=== PATIENT | female | born 1940 | race Caucasian/White ===

== ENCOUNTER 2024-10-07 08:01 | Day surgery (SDC) | payer MEDICARE, OTHER, SELFPAY ==
[2024-09-27 08:16] VITALS: BMI 31.6
--- NOTE | 2024-10-01 13:45 | HO.ANESPROP2 ---
Documented by User: Leilani Dey NP 10/01/24 13:45 HPI - Anesthesia Eval Consult details Narrative: 83yo F for Right Cataract Extraction IOL Insertion No previous cataract on record PMFSH Past Medical History Medical History Prediabetes Osteoarthritis Obese Hyperlipidemia Thyroid disease HTN (hypertension) Surgical History Surgical History Hx of cholecystectomy No pertinent past surgical history Social History Social History Patient Tobacco Use Status: Former Tobacco user Use of substances other than those prescribed or required for medical reasons: No Advance Directives: No Advance Directives Information Provided: Yes Advance Directives on File: No Recently lost weight without trying: No Nutrition Risks: No Nutritional Risk Patient : No : No Meds Allergies Allergy/AdvReac Type Severity Reaction Status Date / Time No Known Allergies Allergy Verified 10/07/24 08:54 Home Medications ?Medication ?Instructions ?Recorded ?Confirmed ?Last Taken ?Type ascorbic acid (vitamin C) 500 mg 500 mg PO DAILY 09/27/24 09/27/24 Unknown History tablet (Vitamin C) atorvastatin 10 mg tablet 10 mg PO DAILY 09/27/24 09/27/24 Unknown History carvedilol 25 mg tablet 25 mg PO BID 09/27/24 09/27/24 Unknown History cholestyramine (with sugar) 4 gram ea PO 09/27/24 Unknown History oral powder furosemide 20 mg tablet 20 mg PO DAILY 09/27/24 09/27/24 Unknown History levothyroxine 88 mcg tablet 88 mcg PO DAILY 09/27/24 09/27/24 Unknown History lisinopril 30 mg tablet 30 mg PO DAILY 09/27/24 09/27/24 Unknown History Exam Height,Weight and Vital Signs: Height 5 ft 3.78 in Weight 83 kg Assessment and Plan Assessment Anesthesia Assessment: Chart Reviewed Documented by User: Sonya Rincon MD 10/07/24 09:04 [facility] Past Medical History Medical History Prediabetes Osteoarthritis Obese Hyperlipidemia Thyroid disease HTN (hypertension) Family History Family history of problems with anesthesia: No Surgical History Surgical History Hx of cholecystectomy No pertinent past surgical history History of Problems with Anesthesia: No Social History Social History Patient Tobacco Use Status: Former Tobacco user Use of substances other than those prescribed or required for medical reasons: No Advance Directives: No Advance Directives Information Provided: Yes Advance Directives on File: No Recently lost weight without trying: No Nutrition Risks: No Nutritional Risk Patient : No : No Meds Allergies Allergy/AdvReac Type Severity Reaction Status Date / Time No Known Allergies Allergy Verified 10/07/24 08:54 Home Medications ?Medication ?Instructions ?Recorded ?Confirmed ?Last Taken ?Type ascorbic acid (vitamin C) 500 mg 500 mg PO DAILY 09/27/24 09/27/24 Unknown History tablet (Vitamin C) atorvastatin 10 mg tablet 10 mg PO DAILY 09/27/24 09/27/24 Unknown History carvedilol 25 mg tablet 25 mg PO BID 09/27/24 09/27/24 Unknown History cholestyramine (with sugar) 4 gram ea PO 09/27/24 Unknown History oral powder furosemide 20 mg tablet 20 mg PO DAILY 09/27/24 09/27/24 Unknown History levothyroxine 88 mcg tablet 88 mcg PO DAILY 09/27/24 09/27/24 Unknown History lisinopril 30 mg tablet 30 mg PO DAILY 09/27/24 09/27/24 Unknown History Exam Airway Mallampati Class: II TM Dist: >3cm Neck ROM: Limited Heart: rrr Lungs: cta Assessment and Plan Assessment Anesthesia Assessment: Anesthesia Plan Discussed Final Anesthetic Review Family History of Problems with Anesthesia: No History of Problems with Anesthesia: No NPO: Yes ASA Class: III Final Preanesthetic Review: No Changes in Pt Med Stat, Meds/Allgs Chart Reviewed, Consent Obtained/Reviewed and Anes Risks/Benef Reviewed Patient Risk: Low Procedure Risk: Low Anesthetic Plan Anesthetic Plan: MAC: Disposition: Standard PACU
--- OUTSIDE RECORDS SUMMARY | 2024-10-07 08:03 | XMS_ITS | Continuity of Care Document ---
Author Organization [facility] Address [address] [place] [address]- Care Team Providers Care Implementation Project Manager Name Role Phone Moe KENNEDY, Matheus Primary Care Physician Encounter [facility] [id number] Date(s): 09/26/24 - 10/03/24 [facility] [address] [place] [address] Attending Physician: Momo Mata MD Referring Physician: Medhat Alejandre MD Encounter Type: Office Visit Allergies, Adverse Reactions, Alerts No Known Allergies Medications atorvastatin 10 mg oral tablet 1 tablet = 10 mg, By Mouth, Daily, 0 Refills, Maintenance, 07/08/20 6:04:00 PM EDT Start Date: 07/08/20 Status: Ordered Repeat number: 1 carvedilol 25 mg oral tablet Refills 0, Maintenance, 09/26/24 9:39:00 AM EST, Partial fill upon patient request if the prescription is for a schedule II opioid drug. Start Date: 09/26/24 Status: Ordered Repeat number: 1 cholestyramine 4 gm/9 gm oral powder for reconstitution TAKE 1 SCOOP EVERY DAY BY ORAL ROUTE NEEDED FOR 28 DAYS. Start Date: 09/26/24 Status: Ordered Repeat number: 1 furosemide 20 mg oral tablet Refills 0, Maintenance, 09/26/24 9:39:00 AM EST, Partial fill upon patient request if the prescription is for a schedule II opioid drug. Start Date: 09/26/24 Status: Ordered Repeat number: 1 Hair Skin and Nails By Mouth, Daily, 0 Refills, Maintenance, 09/26/24 9:45:00 AM EST, Partial fill upon patient requestif the prescription is for a schedule II opioid drug. Start Date: 09/26/24 Status: Ordered Repeat number: 1 levothyroxine 0.088 mg oral tablet 1 tablet = 88 mcg, By Mouth, Daily, 0 Refills, Maintenance, 07/08/20 6:03:00 PM EDT Start Date: 07/08/20 Status: Ordered Repeat number: 1 lisinopril 30 mg oral tablet 1 tablet = 30 mg, By Mouth, Daily, 0 Refills, Maintenance, 07/08/20 6:04:00 PM EDT Start Date: 07/08/20 Status: Ordered Repeat number: 1 Vitamin C By Mouth, Daily, 0 Refills, Maintenance, 09/26/24 9:45:00 AM EST, Partial fill upon patient requestif the prescription is for a schedule II opioid drug. Start Date: 09/26/24 Status: Ordered Repeat number: 1 Problem List Condition Confirmation Course Effective Dates Status H ealth Status Informant HTN - Hypertension Confirmed Active Hyperlipidemia Confirmed Active Hypothyroid Confirmed Active Obese class I Confirmed Active Osteoarthritis of knee Confirmed Active Prediabetes Confirmed Active Vital Signs Most recent to oldest [Reference Range]: 1 Height 162 cm (09/26/24 9:37 AM) Weight 83 kg (09/26/24 9:37 AM) Oxygen Saturation [94-100 %] 100 % (09/26/24 9:37 AM) Pulse Rate [55-90 bpm] 71 bpm (09/26/24 9:37 AM) Body Mass Index [18.5-24.99 kg/m2] 31.63 kg/m2 *>HHI* (09/26/24 9:37 AM) Blood Pressure [90-138/55-84 mm Hg] 113/ 54mm Hg (09/26/24 9:37 AM) Respiratory Rate [16-30 br/min] 16 br/mi n (09/26/24 9:37 AM) Mode of Delivery (Oxygen) Room air (09/26/24 9:37 AM) Blood pressure sites Arm, right (09/26/24 9:37 AM) Weight Obtained Via Standing scale (09/26/24 9:37 AM) Social History Social History Type Response Smoking Status Former smoker entered on: 12/13/14 Sex Sex Representation Female (finding) Patient Care team information Care Team Personnel Name: Joy Paniagua RN Position: [place] PURI RN Member Role: Primary Care Nurse Name: Emily Mcmahon RN Position: EDNA PURI RN Member Role: Primary Care Nurse Name: Matheus Rosa MD Position: Reference Physician Member Role: PCP Address: [address] [place] [address] Telecom: Care Team Related Persons Name: DOROTHY BLANDON Name: GLORIA BLANDON Insurance Providers Guarantor name: MICAH BLANDON Health Plan Information #: 1 Payer: MEDICARE PART B OUTPT Member Number: [id number] Policy Number: NA Group Number: NA Health Plan Information #: 2 Payer: [facility] Member Number: [id number] Policy Number: NA Group Number: [id number]
--- OUTSIDE RECORDS SUMMARY | 2024-10-07 08:03 | XMS_ITS | Continuity of Care Document ---
Author Organization [facility] ter Address [address] [place] [address]- Care Team Providers Care Inspector Outside Steam Distribution Name Role Phone Moe KENNEDY, Matheus Primary Care Physician [place] [facility] [place]/14[place] - 07/14/[address] [address]- [facility] Discharge Disposition: A-D/C Home Attending Physician: Elli Ocampo MD Admitting Physician: Elli Ocampo MD Referring Physician: Elli Ocampo MD Allergies, Adverse Reactions, Alerts Substance Reaction Severity Status NKA Active Medications atorvastatin 10 mg oral tablet 1 tablet = 10 mg, By Mouth, Daily, 0 Refills, Maintenance, 07/08/20 18:04:00 EDT Start Date: 07/08/20 Status: Ordered doxycycline hyclate 100 mg oral capsule 1 capsule = 100 mg, By Mouth, Daily, 0 Refills, Maintenance, 07/08/20 18:04:00 EDT Start Date: 07/08/20 Status: Ordered Hair, Skin & Nails = 5 mg, By Mouth, Daily, 0 Refills, Maintenance, 07/08/20 18:05:00 EDT Start Date: 07/08/20 Status: Ordered levothyroxine 0.088 mg oral tablet 1 tablet = 88 mcg, By Mouth, Daily, 0 Refills, Maintenance, 07/08/20 18:03:00 EDT Start Date: 07/08/20 Status: Ordered lisinopril 30 mg oral tablet 1 tablet = 30 mg, By Mouth, Daily, 0 Refills, Maintenance, 07/08/20 18:04:00 EDT Start Date: 07/08/20 Status: Ordered traMADol 50 mg oral tablet 1 tablet = 50 mg, By Mouth, Every 6 hours, PRN as needed for pain, for 7 days, # 28 tablet, 0 Refills, Acute 07/21/20 8:42:00 EDT, 07/14/20 8:42:00 EDT, Tablet, [facility], 162, cm, 07/14/20 6:56:00 EDT, Height, 84, kg, 07/14/20 6:56:00... Start Date: 07/14/20 Stop Date: 07/21/20 Status: Ordered Valium 2 mg oral tablet 2 mg, 1, tablet, By Mouth, 3 times a day, PRN, for 7 days, # 21 tablet, Refills 0, Tot. Refills 0, Acute 07/21/20 8:42:00 EDT, Spasm, 07/14/20 8:42:00 EDT, Route to Pharmacy Electronically, [facility], 162, cm, 07/14/20 6:56:00 EDT, [place]... Start Date: 07/14/20 Stop Date: 07/21/20 Status: Ordered Vital Signs Most recent to oldest [Reference Range]: 1 2 3 Height 162 cm (07/14/20 6:56 AM) 162 cm (07/08/20 6:19 PM) Weight 84 kg (07/14/20 6:56 AM) 84 kg (07/08/20 6:19 PM) Oxygen Saturation [94-100 %] 94 % (07/14/20 8:15 AM) 94 % (07/14/20 8:00 AM) 98 % (07/14/20 6:56 AM) Pulse Rate [55-90 bpm] 78 bpm (07/14/20 6:56 AM) Body Mass Index [18.5-24.99] 32.01 *>HHI* (07/14/20 6:56 AM) 32.01 *>HHI* (07/08/20 6:19 PM) Blood Pressure [90-138/55-84 mm Hg] 123/52mm Hg (07/14/20 8:15 AM) 113/55mm Hg (07/14/20 8:00 AM) 151/69mm Hg *H* (07/14/20 6:56 AM) Respiratory Rate [16-30 br/min] 16 br/min (07/14/20 8:15 AM) 8 br/min *L* (07/14/20 8:00 AM) 18 br/min (07/14/20 6:56 AM) Temperature [96.8-100.4 DegF] 97.4 DegF (07/14/20 9:00 AM) 97.1 DegF (07/14/20 8:00 AM) 98.9 DegF (07/14/20 6:56 AM) Mode of Delivery (Oxygen) Room air (07/14/20 8:15 AM) Room air (07/14/20 8:00 AM) Room air (07/14/20 6:56 AM) Blood pressure sites Arm, left (07/14/20 8:00 AM) Arm, left (07/14/20 6:56 AM) Temperature Route Temporal (07/14/20 8:00 AM) Temporal (07/14/20 6:56 AM) Dry Weight 84 kg (07/14/20 6:56 AM) 84 kg (07/08/20 6:19 PM) Weight Obtained Via Standing scale (07/14/20 6:56 AM) Dry Weight Obtained Via Standing scale (07/14/20 6:56 AM) Patient/family stated (07/08/20 6:19 PM) Social History Social History Type Response Smoking Status Former smoker entered on: 12/13/14 Sex
--- OUTSIDE RECORDS SUMMARY | 2024-10-07 08:03 | XMS_ITS | Continuity of Care Document ---
Author Organization [facility] Address [address] [place] [address] [address] [place] [address]- Care Team Providers Care Termite Technician Name Role Phone Moe KENNEDY, Matheus Primary Care Physician [place] [facility] [place] - 11/02/19 [facility] [address] [place] [address]- [facility] Attending Physician: Mamadou Newman Admitting Physician: AdmMamadou walters Referring Physician: AdmtrMamadou Allergies, Adverse Reactions, Alerts Substance Reaction Severity Status NKA Active Medications famotidine 20 mg oral tablet = 20 mg, By Mouth, 2 times a day, 0 Refills, Maintenance, 12/13/14 11:21:49, Tablet Start Date: 12/13/14 Status: Ordered Levoxyl 0.075 mg oral tablet See Instructions, 1 tablet By Mouth Daily, 0 Refills, Maintenance, 12/12/14 20:30:31 Start Date: 12/12/14 Status: Ordered lisinopril 10 mg oral tablet 1/2 tab, By Mouth, Daily, # 30 tablet, 0 Refills, Maintenance, 12/12/14 20:29:58, Tablet Start Date: 12/12/14 Status: Ordered red yeast rice 600 mg oral capsule 1 capsule = 600 mg, 0 Refills, Maintenance, 12/12/14 20:32:17 Start Date: 12/12/14 Status: Ordered Social History Social History Type Response Smoking Status Former smoker entered on: 12/13/14 Sex
--- OUTSIDE RECORDS SUMMARY | 2024-10-07 08:03 | XMS_ITS | Continuity of Care Document ---
Author Organization [facility] ter Address [address] [place] [address]- Care Team Providers Care Milk Pickup Driver Name Role Phone Matheus Rosa MD Primary Care Physician Encounter [facility] Date(s): 10/21/19 - 10/21/[address] [address]- [facility] Attending Physician: Matheus Rosa MD Allergies, Adverse Reactions, Alerts Substance Reaction [...]
--- OUTSIDE RECORDS SUMMARY | 2024-10-07 08:03 | XMS_ITS | Continuity of Care Document ---
Author Organization [facility] Address [address] [place] [address]- Care Team Providers Care Psychiatric Nursing Aide Name Role Phone Moe KENNEDY, Matheus Primary Care Physician Encounter [facility] Date(s): 06/06/24 - 07/20/[address] [address]- Attending Physician: Dc Dougherty MD Admitting Physician: Dc Dougherty MD Referring Physician: Dc Dougherty MD Allergies, Adverse Reactions, Alerts No Known Allergies Medications acetaminophen 325 mg oral tablet 650 mg, By Mouth, Every 6 hours, May take OTC not to exceed 3000 mg/day, Refills 0, Maintenance, 03/26/22 7:04:00 EDT, Partial fill upon patient request if the prescription is for a schedule II opioid drug. Start Date: 03/26/22 Status: Ordered Aspirin Tablet 325 mg, By Mouth, 2 times a day, Refills 0, Maintenance, 03/26/22 7:04:00 EDT, Partial fill upon patient request if the prescription is for a schedule II opioid drug. Start Date: 03/26/22 Status: Ordered atorvastatin 10 mg oral tablet 1 tablet = 10 mg, By Mouth, Daily, 0 Refills, Maintenance, 07/08/20 18:04:00 EDT Start Date: 07/08/20 Status: Ordered celecoxib 200 mg oral capsule 1 capsule = 200 mg, By Mouth, Daily, 0 Refills, Maintenance, 03/26/22 7:04:00 EDT, Capsule, Partialfill upon patient request if the prescription is for a schedule II opioid drug. Start Date: 03/26/22 Status: Ordered Colace Capsule 100 mg, 1, capsule, By Mouth, 2 times a day, Refills 0, Maintenance, 03/26/22 7:04:00 EDT, Partial fill upon patient request if the prescription is for a schedule II opioid drug. Start Date: 03/26/22 Status: Ordered doxycycline hyclate 100 mg oral capsule 1 capsule = 100 mg, By Mouth, Daily, 0 Refills, Maintenance, 07/08/20 18:04:00 EDT Start Date: 07/08/20 Status: Ordered levothyroxine 0.088 mg oral tablet 1 tablet = 88 mcg, By Mouth, Daily, 0 Refills, Maintenance, 07/08/20 18:03:00 EDT Start Date: 07/08/20 Status: Ordered lisinopril 30 mg oral tablet 1 tablet = 30 mg, By Mouth, Daily, 0 Refills, Maintenance, 07/08/20 18:04:00 EDT Start Date: 07/08/20 Status: Ordered MiraLax Powder 1 pack/packet = 17 Gm, By Mouth, Daily, PRN Constipation, 0 Refills, Maintenance, 03/26/22 7:04:00 EDT, Powder, Partial fill upon patient request if the prescription is for a schedule II opioid drug. Start Date: 03/26/22 Status: Ordered pantoprazole 40 mg oral delayed release tablet = 40 mg, By Mouth, Daily, 0 Refills, Maintenance, 03/26/22 7:04:00 EDT, EC Tablet Start Date: 03/26/22 Status: Ordered senna 187 mg oral tablet 1 tablet = 8.6 mg, By Mouth, Daily at bedtime, PRN as needed for constipation, 0 Refills, Maintenance, 03/26/22 7:04:00 EDT, Tablet, Partial fill upon patient request if the prescription is for a schedule II opioid drug. Start Date: 03/26/22 Status: Ordered Problem List Condition Confirmation Course Effective Dates Status H ealth Status Informant HTN - Hypertension Confirmed Active Hyperlipidemia Confirmed Active Hypothyroid Confirmed Active Obese class I Confirmed Active Osteoarthritis of knee Confirmed Active Prediabetes Confirmed Active Social History Social History Type Response Smoking Status Former smoker entered on: 12/13/14 Sex Patient Care team information Care Team Personnel Name: Joy Paniagua RN Position: EDNA PURI RN Member Role: Primary Care Nurse Name: Emily Mcmahon RN Position: [facility] PURI RN Member Role: Primary Care Nurse Name: Matheus Rosa MD Position: Reference Physician Member Role: PCP Address: Address: [address] [place] [address]- Care Team Related Persons Name: DOROTHY BLANDON Address: home [address] [place] [address] Name: GLORIA BLANDON
--- OUTSIDE RECORDS SUMMARY | 2024-10-07 08:03 | XMS_ITS | Continuity of Care Document ---
Author Organization [facility] Address [address] [place] [address]- Care Team Providers Care Reading Recovery Teacher Name Role Phone Matheus Rosa MD Primary Care Physician Encounter [facility] [id number] Date(s): 04/29/24 - 05/31/[address] [address]- Attending Physician: Matheus Rosa MD Admitting Physician: Matheus Rosa MD Referring Physician: Matheus Rosa MD Allergies, Adverse Reactions, Alerts No Known [...] Team Personnel Name: Joy Paniagua RN Position: [place] PURI RN Member Role: Primary Care Nurse Name: Emily Mcmahon RN Position: [facility] RN Member Role: Primary Care Nurse Name: Matheus Rosa MD Position: Reference Physician Member Role: PCP Address: Address: [address] [place] [address]- Care Team Related Persons Name: DOROTHY BLANDON Address: [address] [place] [address] Name: GLORIA BLANDON
--- OUTSIDE RECORDS SUMMARY | 2024-10-07 08:03 | XMS_ITS | Continuity of Care Document ---
Author Organization [facility] Address [address] [place] [address] ve [address] [place] [address]- Care Team Providers Care Drier Feeder Name Role Phone Moe KENNEDY, Matheus Primary Care Physician [phone] Encounter [facility] Date(s): 06/18/20 - 06/25/[address] [place] [address]- [facility] Encounter Diagnosis Anal polyp(Discharge Diagnosis) - 06/18/20 Attending Physician: Elli Ocampo MD Referring Physician: Lulu Wheeler MD Allergies, Adverse Reactions, Alerts Substance Reaction [...] 12/12/14 20:32:17 Start Date: 12/12/14 Status: Ordered Problem List Diagnosis Diagnosis Type Effective Dates Health Status Clini jorge Service Informant Anal polyp Discharge Diagnosis 06/18/20 Social History Social History Type Response Smoking Status Former smoker entered on: 12/13/14 Sex
--- OUTSIDE RECORDS SUMMARY | 2024-10-07 08:03 | XMS_ITS | Continuity of Care Document ---
Author Organization [facility] Address [address] [place] [address] [address] [place] [address]- Care Team Providers Care Fire And Safety Helper Name Role Phone Matheus Rosa MD Primary Care Physician [place] [facility] Date(s): 10/23/19 - 10/30/19 [facility] [address] [place] [address]- [facility] Attending Physician: Aye Jordan Referring Physician: Matheus Rosa MD Allergies, Adverse [...] 12/12/14 20:32:17 Start Date: 12/12/14 Status: Ordered Vital Signs Most recent to oldest [Reference Range]: 1 Height 163 cm (10/23/19 1:38 PM) Weight 85.54 kg (10/23/19 1:38 PM) Body Mass Index [18.5-24.99] 32.2 *>HHI* (10/23/19 1:38 PM) Social History Social History Type Response Smoking Status Former smoker entered on: 12/13/14 Sex
--- OUTSIDE RECORDS SUMMARY | 2024-10-07 08:03 | XMS_ITS | Continuity of Care Document ---
Author Organization [facility] Address [address] [place] [address]- Care Team Providers Care Back Shoe Cutter Name Role Phone Matheus Rosa MD Primary Care Physician En[place] [facility] [place] Date(s): 03/09/22 - 04/08/22 [facility] [address] [place], [place] [address] Attending Physician: Mamadou Newman Admitting Physician: Mamadou Newman Referring Physician: AdmtrMamadou Allergies, Adverse Reactions, Alerts No Known Allergies [...] Date: 03/26/22 Status: Ordered Problem List Condition Effective Dates Status Health Status Inform ant HTN - Hypertension(Confirmed) Active Hyperlipidemia(Confirmed) Active Hypothyroid(Confirmed) Active Obese class I(Confirmed) Active Osteoarthritis of knee(Confirmed) Active Prediabetes(Confirmed) Active Social History Social History Type Response Smoking Status Former smoker entered on: 12/13/14 Sex
--- OUTSIDE RECORDS SUMMARY | 2024-10-07 08:03 | XMS_ITS | Continuity of Care Document ---
Author Organization [facility] Address [address] [place] [address] [address] [place] [address]- Care Team Providers Care Electrical Engineering Designer Name Role Phone Matheus Rosa MD Primary Care Physician Encounter [facility] Date(s): 08/13/20 - 08/20/[address] [place] [address]- [facility] Encounter Diagnosis Rectal lesion(Discharge Diagnosis) - 08/12/20 Attending Physician: Elli Ocampo MD Referring Physician: Matheus Rosa MD Allergies, [...] 18:04:00 EDT Start Date: 07/08/20 Status: Ordered Problem List Diagnosis Diagnosis Type Effective Dates Health Status Cl inical Service Informant Rectal lesion Discharge Diagnosis 08/12/20 Social History Social History Type Response Smoking Status Former smoker entered on: 12/13/14 Sex
--- OUTSIDE RECORDS SUMMARY | 2024-10-07 08:03 | XMS_ITS | Continuity of Care Document ---
Author Organization [facility] Address [address] [place] [address] [address] [place] [address]- Care Team Providers Care Briquetter Operator Name Role Phone Matheus Rosa MD Primary Care Physician [phone] En[place] [facility] Date(s): 02/04/21 - 03/06/[address] [place] [address]- Attending Physician: Mamadou Newman Admitting Physician: Mamadou [...] 18:04:00 EDT Start Date: 07/08/20 Status: Ordered Social History Social History Type Response Smoking Status Former smoker entered on: 12/13/14 Sex
--- OUTSIDE RECORDS SUMMARY | 2024-10-07 08:03 | XMS_ITS | Continuity of Care Document ---
Author Organization [facility] ter Address [address] [place] [address]- Care Team Providers Care Long Filler Cigar Roller Machine Name Role Phone Matheus Rosa MD Primary Care Physician Encounter [facility] [place] Date(s): 03/25/22 - 03/26/[address] [address]- Discharge Disposition: A-Transfer VNA/Home Health Attending Physician: Sebastien Tyson MD Admitting Physician: Sebastien Tyson MD Referring Physician: Sebastien Tyson MD Allergies, Adverse Reactions, Alerts No Known Allergies Medications acetaminophen 325 mg oral tablet 650 mg, By Mouth, Every 6 hours, May take OTC not to exceed 3000 mg/day, Refills 0, Maintenance, 03/26/22 7:04:00 EDT, Partial fill upon patient request if the prescription is for a schedule II opioid drug. Start Date: 03/26/22 Status: Ordered Acetaminophen Tablet 650 mg, Tablet, By Mouth, 03/26/22 3:00:00 EDT Start Date: 03/26/22 Stop Date: 03/26/22 Status: Completed Aspirin Tablet 325 mg, By Mouth, 2 [...] opioid drug. Start Date: 03/26/22 Status: Ordered Dilaudid Tablet 2 mg, Tablet, By Mouth, Every 4 hours, PRN for Pain , Mild, Routine, 03/25/22 14:40:00 EDT Start Date: 03/25/22 Stop Date: 03/26/22 Status: Discontinued doxycycline hyclate 100 mg oral capsule 1 capsule = 100 mg, By Mouth, Daily, 0 Refills, Maintenance, 07/08/20 18:04:00 EDT Start Date: 07/08/20 Status: Ordered HYDROmorphone 2 mg oral tablet = 2 mg, By Mouth, Every 4 hours, PRN Pain , Mild, for 7 days, # 42 tablet, 0 Refills, Acute 04/02/22 7:03:00 EDT, 03/26/22 7:03:00 EDT, Tablet, [facility], Partial fill upon patient request if the prescription is for a schedule II opioid... Start Date: 03/26/22 Stop Date: 04/02/22 Status: Ordered levothyroxine 0.088 mg oral tablet [...] Active Osteoarthritis of knee(Confirmed) Active Prediabetes(Confirmed) Active Results Radiology Reports * Exam Date Time Procedure Performing Provider Status 03/25/22 11:16 PM Knee 1 or 2 Views Right Rock Her; Auth (Verified) Notes: (Knee 1 or 2 Views Right) Reason For Exam: Postop;Postop RESULT: Knee 1 or 2 Views Right Knee 1 or 2 Views Right 1 view INDICATION/CLINICAL QUESTION: Reason: Postop; Clinical Question(s): Other:; Implant Position; Special Instructions: Do today at 2200, No flexed knee in the lateral position. Keep leg straight; 2 Views COMPARISON: None. FINDINGS: Total knee arthroplasty with intact hardware and normal alignment. No fracture. IMPRESSION: No apparent complication. WSN: [id number] Ordering Physician: Sebastien Tyson Dictated By: Anselmo Alcantar MD Dictated Date/Time: 03/25/22 11:17 p Reviewed By: Anselmo Alcantar MD Signed By: Anselmo Alcantar MD Signed Date/Time: 03/25/22 11:17 pm Transcribed By: LEWIS Transcribed Date/Time: 03/25/22 11:17 pm Vital Signs Most recent to oldest [Reference Range]: 1 2 3 4 Height 162 cm (03/26/22 6:29 AM) 162 cm (03/26/22 3:27 AM) 162 cm (03/26/22 12:09 AM) Weight 81.9 kg (03/25/22 11:31 AM) 81.9 kg (03/25/22 7:03 AM) Oxygen Saturation [94-100 %] 99 % (03/26/22 6:29 AM) 100 % (03/26/22 3:27 AM) 100 % (03/26/22 12:09 AM) Pulse Rate [55-90 bpm] 65 bpm (03/26/22 6:29 AM) 71 bpm (03/26/22 3:27 AM) 81 bpm (03/26/22 12:09 AM) Body Mass Index [18.5-24.99] 31.21 *>HHI* (03/25/22 11:31 AM) 31.21 *>HHI* (03/25/22 7:03 AM) Blood Pressure [90-138/55-84 mm Hg] 130/61mm Hg (03/26/22 6:29 AM) 151/58mm Hg *H* (03/26/22 3:27 AM) 142/63mm Hg *H* (03/26/22 12:09 AM) Respiratory Rate [16-30 br/min] 18 br/min (03/26/22 8:28 AM) 19 br/min (03/26/22 6:29 AM) 16 br/min (03/26/22 6:17 AM) 16 br/min (03/26/22 6:17 AM) Temperature [96.8-100.4 DegF] 97.6 DegF (03/26/22 6:29 AM) 97.6 DegF (03/26/22 3:27 AM) 97.7 DegF (03/26/22 12:09 AM) Mode of Delivery (Oxygen) Room air (03/26/22 6:29 AM) Room air (03/26/22 3:27 AM) Room air (03/26/22 12:09 AM) Blood pressure sites Arm, right (03/26/22 3:27 AM) Arm, right (03/26/22 12:09 AM) Arm, right (03/25/22 7:45 PM) Temperature Route Oral (03/26/22 6:29 AM) Oral (03/26/22 3:27 AM) Oral (03/26/22 12:09 AM) Dry Weight 81.9 kg (03/25/22 7:03 AM) Social History Social History Type Response Smoking Status Former smoker entered on: 12/13/14 Sex
--- OUTSIDE RECORDS SUMMARY | 2024-10-07 08:03 | XMS_ITS | Continuity of Care Document ---
Author Organization [facility] ter Address [address] [place] [address]- Care Team Providers Care Emergency Room Registered Nurse Name Role Phone Matheus Rosa MD Primary Care Physician [phone] [place] [facility] [place] - 04/14/[address] [address]- Attending Physician: Mamadou Newman Admitting Physician: Mamadou [...]
--- OUTSIDE RECORDS SUMMARY | 2024-10-07 08:03 | XMS_ITS | Continuity of Care Document ---
Author Organization [facility] Address [address] [place] [address] [address] [place] [address]- Care Team Providers Care Bonding And Composite Fabricator Name Role Phone Moe KENNEDY, Matheus Primary Care Physician [place] [facility] [place] - 07/11/[address] [place] [address] [place] Encounter Diagnosis Hypertension(Discharge Diagnosis) - 06/10/20 Hypothyroid(Discharge Diagnosis) - 06/10/20 Chest pain(Discharge Diagnosis) - 06/10/20 Attending Physician: Elli Ocampo MD Referring Physician: [...] Dates Health Status Cl inical Service Informant Hypertension Discharge Diagnosis 06/10/20 Hypothyroid Discharge Diagnosis 06/10/20 Chest pain Discharge Diagnosis 06/10/20 Social History Social History Type Response Smoking Status Former smoker entered on: 12/13/14 Sex
--- OUTSIDE RECORDS SUMMARY | 2024-10-07 08:03 | XMS_ITS | Continuity of Care Document ---
Author Organization [facility] Address [address] [place] [address] [address] [place] [address]- Care Team Providers Care Loan Interviewer Name Role Phone Matheus Rosa MD Primary Care Physician [place] [facility] [place] - 02/11/[address] [place] [address]- Encounter Diagnosis Tubular adenoma(Discharge Diagnosis) - 02/04/21 Attending Physician: Steffanie MARISCAL, Ludmila Hart Referring Physician: Matheus Rosa MD Allergies, Adverse [...] Dates Health Status Cl inical Service Informant Tubular adenoma Discharge Diagnosis 02/04/21 Social History Social History Type Response Smoking Status Former smoker entered on: 12/13/14 Sex
--- OUTSIDE RECORDS SUMMARY | 2024-10-07 08:04 | XMS_ITS | Continuity of Care Document ---
Author Organization [facility] Address [address] [place] [address] [address] [place] [address]- Care Team Providers Care Prison Officer Name Role Phone Moe KENNEDY, Matheus Primary Care Physician [phone] Encounter [facility] [place] Date(s): 06/30/20 - 07/30/[address] [place] [address]- [facility] Allergies, Adverse Reactions, Alerts Substance Reaction Severity [...]
--- OUTSIDE RECORDS SUMMARY | 2024-10-07 08:04 | XMS_ITS | Continuity of Care Document ---
Author Organization [facility] Address [address] [place] [address] [address] [place] [address]- Care Team Providers Care Automatic Drilling Machine Operator Name Role Phone Moe KENNEDY, Matheus Primary Care Physician [place] [facility] [place] 06/15/[place] - 08/22/[address] [place] [address]- [facility] Attending Physician: Elli Ocampo MD Referring Physician: Not on Staff, Referring MD Allergies, Adverse Reactions, Alerts Substance Reaction [...]
--- OUTSIDE RECORDS SUMMARY | 2024-10-07 08:04 | XMS_ITS | Continuity of Care Document ---
Author Organization [facility] Address [address] [place] [address]- Care Team Providers Care Instrument Tester Name Role Phone Matheus Rosa MD Primary Care Physician [id number] Date(s): 05/01/24 - 05/31/[address] [address]- Attending Physician: Mamadou Newman Admitting Physician: Mamadou Newman Referring Physician: Mamadou Newman Allergies, Adverse Reactions, Alerts No Known Allergies [...] Reference Physician Member Role: PCP Address: Address: [address] [place] [address] [address] [place] [address]- Care Team Related Persons Name: DOROTHY BLANDON Address: home [address] [place] [address] Name: GLORIA BLANDON
--- OUTSIDE RECORDS SUMMARY | 2024-10-07 08:04 | XMS_ITS | Continuity of Care Document ---
Author Organization [facility] ter Address [address] [place] [address]- Care Team Providers Care Software Security Architect Name Role Phone Moe KENNEDY, Matheus Primary Care Physician [phone] [place] [facility] [place]/10/20 - 03/21/[address] [address]- [facility] Attending Physician: Lulu Wheeler MD Admitting Physician: Lulu Wheeler MD Allergies, Adverse Reactions, [...]
[2024-10-07 08:55] VITALS: BP 144/64; PULSE 67; RESP 16; TEMP 36.4; O2SAT 97
[2024-10-07] MEDS: Tetracaine HCl/PF 0.5% Oph Sol 4 ML DROPS 1 DROP EYE-RIGHT (09:10)
[2024-10-07] MEDS: Cyclopentolate 1 % Ophth Sol 2 ML DRPBTL 1 DROP EYE-RIGHT ×3 (09:11→09:25)
[2024-10-07] MEDS: Tropicamide 1 % Ophth Sol 3 ML BTL 1 DROP EYE-RIGHT ×3 (09:14→09:26)
[2024-10-07] MEDS: Ketorolac Tromethamine 0.5% Op 10 ML DROPS 1 DROP EYE-RIGHT ×3 (09:16→09:27)
[2024-10-07] MEDS: Phenylephrine HCL 2.5% Oph SoL 2 ML BOTTLE 1 DROP EYE-RIGHT ×3 (09:18→09:28)
[2024-10-07] MEDS: Lactated Ringers 500 ML 50 ML IV (09:23)
--- NOTE | 2024-10-07 09:55 | P.PCNO_ITS ---
Ophthalmology Procedure Procedure Date of Service: 10/07/24 Ophthalmology Viscoelastic: Healon Duet Dual Pack Pro Ophthalmology Lenses: IOL Acrysof MP - MA60AC (22.5) Procedure Notes: PREOPERATIVE DIAGNOSIS: Decreased visual acuity right eye secondary to cataract POSTOPERATIVE DIAGNOSIS: Same PROCEDURE: Right cataract extraction with intraocular lens insertion SURGEON: Medhat Alejandre M.D. ANESTHESIA: Topical/MAC ESTIMATED BLOOD LOSS: None COMPLICATIONS: None After obtaining informed consent, the patient was brought to the operating room suite and placed in the supine position. After adequate sedation per anesthesia, topical drops of Tetracaine were given to the right eye. The eye was then prepped and draped in the usual sterile fashion. The operating room microscope was then positioned over the operative eye and a lid speculum placed. A paracentesis was created. Viscoelastic was then instilled into the anterior chamber. A three plane incision was then created temporally, utilizing a 2.85 mm keratome. Capsulotomy forceps were then utilized to create a circular tear capsulotomy. Hydrodissection and hydrodelineation were carried out until adequate mobilization of the nucleus occurred. Phacoemulsification was then utilized to remove the dense central nu cleus followed by removal of the cortical material utilizing the automated aspiration irrigation unit. Viscoelastic was instilled into the posterior capsular bag followed by placement of a posterior chamber intraocular lens without difficulty. The residual Viscoelastic was then removed utilizing the automated IA machine. The wound was checked and found to be watertight. The patient tolerated the procedure well and the lid speculum was removed. Intracameral injection of Vigamox 0.1 mL followed by a subtenon injection of Kenalog-40 0.2 mL were administered. The patient will be seen in the a.m.
--- NOTE | 2024-10-07 09:55 | MHC.SHP ---
Pre-Procedural Eval Section A - 24 Hr Update-Section A only Date of Service: 10/07/24 The patient is an INPATIENT: No Changes since office visit: No Cold of Flu in the past 2 weeks, No New Medical Problems, No Changes in Medication and No Patient answered all questions The patient has been examined within 24 hours of the surgical procedure. The History & Physical has been completed within 30 days and I have reviewed it.: Yes Section B - Complete if H&P > 30 days Chief Complaint: Age-related nuclear cataract, right eye Allergies: Allergies Allergy/AdvReac Type Severity Reaction Status Date / Time No Known Allergies Allergy Verified 10/07/24 08:54 Plan Diagnosis/Plan: Unchanged I have reviewed the history and physical and performed a pertinent physical examination on my patient. No changes have occurred unless specified. Time Spent With Patient Time: Total time managing care of this patient today ____ minutes.
[2024-10-07 10:15] VITALS: BP 145/59; PULSE 59; RESP 16; TEMP 36.4; O2SAT 100
== END 2024-10-07 10:31 | disposition home or self-care (01) ==
PROVIDERS: PCP Pediatrics; Visit Provider Ophthalmology
PROC: (CPT 66985; principal; 2024-10-07 10:30)
DX: H25.11 Age-related nuclear cataract, right eye (principal); H54.7 Unspecified visual loss; R73.03 Prediabetes; I10 Essential (primary) hypertension; E78.00 Pure hypercholesterolemia, unspecified; E07.9 Disorder of thyroid, unspecified; Z86.19 Personal history of other infectious and parasitic diseases; Z79.899 Other long term (current) drug therapy
CPT/HCPCS: 66984; J2250; J3301; V2630

== ENCOUNTER 2024-10-21 06:22 | Day surgery (SDC) | payer MEDICARE, OTHER, SELFPAY ==
[2024-09-27 08:22] VITALS: BMI 31.6
--- NOTE | 2024-10-17 13:32 | HO.ANESPROP2 ---
Documented by User: Leilani Dey NP 10/17/24 13:32 HPI - Anesthesia Eval Consult details Narrative: 83yo F for Left Cataract Extraction IOL Insertion Right eye 10/07: Midaz 2 PMFSH Past Medical History Medical History Edema, lower extremity Prediabetes Osteoarthritis Obese Hyperlipidemia Thyroid disease HTN (hypertension) Family History Family history of problems with anesthesia: No Surgical History Surgical History History of total right knee replacement (TKR) Hx of cholecystectomy No pertinent past surgical history History of Problems with Anesthesia: No Social History Social History Patient Tobacco Use Status: Never used Tobacco Use of substances other than those prescribed or required for medical reasons: Yes Are you DNR?: No Advance Directives: No Advance Directives Information Provided: Yes Advance Directives on File: No Recently lost weight without trying: No Nutrition Risks: No Nutritional Risk Patient : No : No Meds Allergies Allergy/AdvReac Type Severity Reaction Status Date / Time No Known Allergies Allergy Verified 10/07/24 08:54 Home Medications ?Medication ?Instructions ?Recorded ?Confirmed ?Last Taken ?Type ascorbic acid (vitamin C) 500 mg 500 mg PO DAILY 09/27/24 09/27/24 Unknown History tablet (Vitamin C) atorvastatin 10 mg tablet 10 mg PO DAILY 09/27/24 09/27/24 Unknown History carvedilol 25 mg tablet 25 mg PO BID 09/27/24 09/27/24 Unknown History cholestyramine (with sugar) 4 gram ea PO 09/27/24 Unknown History oral powder furosemide 20 mg tablet 20 mg PO DAILY 09/27/24 09/27/24 Unknown History levothyroxine 88 mcg tablet 88 mcg PO DAILY 09/27/24 09/27/24 10/21/24 History lisinopril 30 mg tablet 30 mg PO DAILY 09/27/24 09/27/24 Unknown History Exam Height,Weight and Vital Signs: Height 5 ft 3.78 in Weight 83 kg Assessment and Plan Assessment Anesthesia Assessment: Chart Reviewed Final Anesthetic Review Family History of Problems with Anesthesia: No History of Problems with Anesthesia: No Documented by User: Rianna Buchanan MD 10/21/24 07:17 PMFSH Past Medical History Medical History Edema, lower extremity Prediabetes Osteoarthritis Obese Hyperlipidemia Thyroid disease HTN (hypertension) Family History Family history of problems with anesthesia: No Surgical History Surgical History History of total right knee replacement (TKR) Hx of cholecystectomy No pertinent past surgical history History of Problems with Anesthesia: No Social History Social History Patient Tobacco Use Status: Never used Tobacco Use of substances other than those prescribed or required for medical reasons: Yes Are you DNR?: No Advance Directives: No Advance Directives Information Provided: Yes Advance Directives on File: No Recently lost weight without trying: No Nutrition Risks: No Nutritional Risk Patient : No : No Meds Allergies Allergy/AdvReac Type Severity Reaction Status Date / Time No Known Allergies Allergy Verified 10/07/24 08:54 Home Medications ?Medication ?Instructions ?Recorded ?Confirmed ?Last Taken ?Type ascorbic acid (vitamin C) 500 mg 500 mg PO DAILY 09/27/24 09/27/24 Unknown History tablet (Vitamin C) atorvastatin 10 mg tablet 10 mg PO DAILY 09/27/24 09/27/24 Unknown History carvedilol 25 mg tablet 25 mg PO BID 09/27/24 09/27/24 Unknown History cholestyramine (with sugar) 4 gram ea PO 09/27/24 Unknown History oral powder furosemide 20 mg tablet 20 mg PO DAILY 09/27/24 09/27/24 Unknown History levothyroxine 88 mcg tablet 88 mcg PO DAILY 09/27/24 09/27/24 10/21/24 History lisinopril 30 mg tablet 30 mg PO DAILY 09/27/24 09/27/24 Unknown History Exam Airway Mallampati Class: III TM Dist: >3cm Neck ROM: Full Loose/Missing/Broken Teeth: Yes (Some missing. Denies broken or loose teeth) Heart: RRR Lungs: CTAB Assessment and Plan Assessment Anesthesia Assessment: Anesthesia Plan Discussed and Chart Reviewed Final Anesthetic Review Family History of Problems with Anesthesia: No History of Problems with Anesthesia: No NPO: Yes ASA Class: II Final Preanesthetic Review: No Changes in Pt Med Stat, Meds/Allgs Chart Reviewed, Consent Obtained/Reviewed and Anes Risks/Benef Reviewed Patient Risk: Intermediate Procedure Risk: Low Assessment/Block/Sedation in SS: Assess/Block/Sedation-SS Anesthetic Plan Anesthetic Plan: MAC: Disposition: Standard PACU
[2024-10-21] MEDS: Lactated Ringers 500 ML 50 ML IV (07:13)
[2024-10-21] MEDS: Tetracaine HCl/PF 0.5% Oph Sol 4 ML DROPS 1 DROP EYE-LEFT (07:17)
[2024-10-21] MEDS: Cyclopentolate 1 % Ophth Sol 2 ML DRPBTL 1 DROP EYE-LEFT ×3 (07:19→07:27)
[2024-10-21] MEDS: Tropicamide 1 % Ophth Sol 3 ML BTL 1 DROP EYE-LEFT ×3 (07:19→07:27)
[2024-10-21] MEDS: Phenylephrine HCL 2.5% Oph SoL 2 ML BOTTLE 1 DROP EYE-LEFT ×3 (07:21→07:28)
[2024-10-21] MEDS: Ketorolac Tromethamine 0.5% Op 10 ML DROPS 1 DROP EYE-LEFT ×3 (07:21→07:27)
[2024-10-21 07:41] VITALS: BP 146/68; PULSE 69; RESP 18; TEMP 36.3; O2SAT 96
--- NOTE | 2024-10-21 07:59 | MHC.SHP ---
Pre-Procedural Eval Section A - 24 Hr Update-Section A only Date of Service: 10/21/24 The patient is an INPATIENT: No Changes since office visit: No Cold of Flu in the past 2 weeks, No New Medical Problems, No Changes in Medication and No Patient answered all questions The patient has been examined within 24 hours of the surgical procedure. The History & Physical has been completed within 30 days and I have reviewed it.: Yes Section B - Complete if H&P > 30 days Chief Complaint: Age-related nuclear cataract, left eye Allergies: Allergies Allergy/AdvReac Type Severity Reaction Status Date / Time No Known Allergies Allergy Verified 10/07/24 08:54 Plan Diagnosis/Plan: Unchanged I have reviewed the history and physical and performed a pertinent physical examination on my patient. No changes have occurred unless specified. Time Spent With Patient Time: Total time managing care of this patient today ____ minutes.
--- NOTE | 2024-10-21 07:59 | HO.PNOPHT ---
Ophthalmology Procedure Procedure Date of Service: 10/21/24 Ophthalmology Viscoelastic: Healon Duet Dual Pack Pro Ophthalmology Lenses: IOL Acrysof MP - MA60AC (18) Procedure Notes: PREOPERATIVE DIAGNOSIS: Decreased visual acuity left eye secondary to cataract POSTOPERATIVE DIAGNOSIS: Same PROCEDURE: Left cataract extraction with intraocular lens insertion SURGEON: Medhat Alejandre M.D. ANESTHESIA: Topical/MAC ESTIMATED BLOOD LOSS: None COMPLICATIONS: None After obtaining informed consent, the patient was brought to the operation room suite and placed in the supine position. After adequate sedation per anesthesia, topical drops of Tetracaine were given to the left eye. The eye was then prepped and draped in the usual sterile fashion. The operating room microscope was then positioned over the operative eye and a lid speculum placed. A paracentesis was created. Viscoelastic was then instilled into the anterior chamber. A three plane incision was then created temporally, utilizing a 2.85 mm keratome. Capsulotomy forceps were then utilized to create a circular tear capsulotomy. Hydrodissection and hydrodelineation were carried out until adequate mobilization of the nucleus occurred. Phacoemulsification was then utilized to remove the dense central nucleus followed by removal of the cortical material utilizing the automated aspiration irrigation unit. Viscoat elastic was instilled into the posterior capsular bag followed by placement of a posterior chamber intraocular lens without difficulty. The residual Viscoat elastic was then removed utilizing the automated IA machine. The wound was check and found to be watertight. The patient tolerated the procedure well and the lid speculum was removed. Intracameral injection of Vigamox 0.1 mL followed by a subtenon injection of Kenalog-40 0.2 mL were administered. The patient will be seen in the a.m.
[2024-10-21 08:28] VITALS: BP 153/59; PULSE 63; RESP 16; TEMP 36.1; O2SAT 100
== END 2024-10-21 08:40 | disposition home or self-care (01) ==
PROVIDERS: PCP Pediatrics; Visit Provider Ophthalmology
PROC: (CPT 66985; principal; 2024-10-21 08:00)
DX: H25.12 Age-related nuclear cataract, left eye (principal); H40.1122 Primary open-angle glaucoma, left eye, moderate stage; H54.7 Unspecified visual loss; E11.9 Type 2 diabetes mellitus without complications; I10 Essential (primary) hypertension; E78.5 Hyperlipidemia, unspecified; Z87.891 Personal history of nicotine dependence
CPT/HCPCS: 66984; J2250; J3301; V2630